=== PATIENT | female | born 1980 | race Caucasian/White ===

== ENCOUNTER 2020-08-19 04:23 | Day surgery (SDC) | payer BC ==
[2020-08-17 17:42] VITALS: BMI 26.6
[2020-08-19 09:17] LABS: BASO % 1.4 % (0-2.0); EOS % 2.5 % (0-4.5); HEMATOCRIT 28.2 % (32.4-45.2); LYMPH % 35.9 % (8-40); MCH 23.1 pg (25.7-33.7); MCHC 31.9 g/dl (32.0-36.0); MEAN CELL VOLUME 72.3 fl (80-96); MONO % 12.1 % (3.8-10.2); NEUT % 48.1 % (42.8-82.8); PLATELET COUNT 336 K/MM3 (134-434); RDW 25.7 % (11.6-15.6); WHITE BLOOD COUNT 8.5 K/mm3 (4.0-10.0)
[2020-08-19 09:50] LABS: BILIRUBIN,TOTAL 0.3 mg/dL (0.2-1)
[2020-08-19 09:52] LABS: TOT PROT 8.1 g/dl (6.4-8.2)
[2020-08-19 09:53] LABS: ALBUMIN 3.6 g/dl (3.4-5.0)
[2020-08-19 09:55] LABS: BLOOD UREA NITROGEN 9.5 mg/dL (7-18); CREATININE 0.7 mg/dL (0.55-1.3)
[2020-08-19] MEDS ORDERED: ROCURONIUM BROMIDE 50 MG/5 ML SYRINGE ONE (11:54)
[2020-08-19] MEDS ORDERED: PROPOFOL 20 ML ONE (11:54)
[2020-08-19] MEDS ORDERED: fentaNYL CITRATE 250 MCG/5 ML VIAL ONE (11:54)
[2020-08-19] MEDS ORDERED: MIDAZOLAM HCL 2 MG/2 ML SINGLE DOSE VIAL ONE (11:54)
[2020-08-19] MEDS ORDERED: KETOROLAC TROMETHAMINE 30 MG/1 ML VIAL ONE (12:10)
[2020-08-19] MEDS ORDERED: DEXAMETHASONE SOD PHOSPHATE 4 MG/1 ML VIAL ONE (12:10)
[2020-08-19] MEDS ORDERED: BUPIVACAINE HCL 50 ML ONE (12:31)
[2020-08-19] MEDS ORDERED: NEOSTIGMINE METHYLSULFATE 0.5 MG/ML - 10 ML MDV ONE (13:20)
[2020-08-19] MEDS ORDERED: SILVER NITRATE 75% APPLIC STCK 1 PKT EACH NR ONE (13:20)
[2020-08-19] MEDS ORDERED: GLYCOPYRROLATE 0.2 MG/1 ML VIAL ONE (13:20)
[2020-08-19] MEDS ORDERED: BUPIVACAINE HCL/PF 0.5% (5 MG/ML) 30 ML VIAL IJ ONE (13:25)
[2020-08-19] MEDS ORDERED: ONDANSETRON 4 MG/2 ML VIAL IVPUSH PRN (13:41)
[2020-08-19] MEDS ORDERED: oxyCODONE HCL 5 MG TABLET PO PRN ×2 (13:41)
[2020-08-19] MEDS ORDERED: LACTATED RINGERS SOLUTION 1,000 ML IV SCH (13:45)
[2020-08-19] MEDS ORDERED: ONDANSETRON 4 MG/2 ML VIAL ONE ×2 (15:04→15:56)
[2020-08-19] MEDS ORDERED: ONDANSETRON 4 MG/2 ML VIAL IVPUSH ONE (15:08)
[2020-08-19 17:57] VITALS: BP 110/65; PULSE 84; TEMP 98
== END 2020-08-19 17:30 | disposition home or self-care (01) ==
LOC: JASUSAT 04:23
PROVIDERS: ATTEND Family Medicine
PROC: 0UB04ZZ Excision of Right Ovary, Percutaneous Endoscopic Approach (ICD-10-PCS; principal; 2020-08-19 11:00)
DX: D27.0 Benign neoplasm of right ovary (principal)
CPT/HCPCS: 36415; 80053; 84702; 85025; 86850; 86900; 86901; 86922; 88307-TC; 94760